=== PATIENT | female | born 1990 | race Caucasian/White ===

== ENCOUNTER 2025-04-19 20:23 | Emergency (ER) | payer BC, SELFPAY ==
[2025-04-19 20:25] VITALS: BP 124/78
--- NOTE | 2025-04-19 21:47 | ED.GENMED ---
History of Present Illness
General
Chief Complaint: Abdominal Symptoms
Source: patient
Exam Limitations: none
Time Seen by Provider: 04/19/25 21:34
History of Present Illness
History of Present Illness:
34-year-old female hearing-impaired patient presents with headache that started gradually yesterday got worse today with associated vomiting. About 15 months ago, she had a meningioma removed at [facility]. She deals with chronic
headaches. She has medications she uses for headaches. This was not going away. No fever. No vision change. No arm numbness or weakness. No injury. She denies any diarrhea. No other complaints at this time
Phy Exam
Physical Exam
Physical Exam:
General: Well-appearing female no acute respiratory distress HEENT: Normocephalic atraumaticpupils equal round reactive to light
Heart: Regular rate and rhythm no murmurs lungs: Clear no wheeze
Neurologic exam: Alert and oriented no facial asymmetry conversing appropriately no meningeal signs
Course
Orders/Labs/Results
Orders:
Orders
04/19/25 21:46
0.9% Sodium Chloride 1000 ml [Nss] 1,000 ml IV BOLUS
Diphenhydramine [Benadryl] 25 mg IV NOW STA
Prochlorperazine [Compazine] 10 mg IV NOW STA
Test Result ONCE
04/19/25 22:32
Complete Blood Count/With Diff Urgent
Comprehensive Metabolic Panel Urgent
HCG, Serum Qualitative Screen Urgent
Abnormal Lab Results
04/19/25
22:32
Absolute Neuts (auto) 6.6 H 10^3/uL
(1.4-6.5)
Neutrophils % 77.2 H %
(42.2-75.2)
Lymphocytes % 14.5 L %
(20.5-51.1)
Chloride 109 H mmol/L
(98-107)
04/19/25 22:32
04/19/25 22:32
Vital Signs
Initial and Last Documented VS:
Initial Vital Signs
Temp Pulse Resp BP Pulse Ox
98.6 F 89 15 124/78 99
04/19/25 20:25 04/19/25 20:25 04/19/25 20:25 04/19/25 20:25 04/19/25 20:25
Last Documented Vital Signs
Temp Pulse Resp BP Pulse Ox
98.6 F 89 15 96/67 97
04/19/25 20:25 04/19/25 20:25 04/19/25 20:25 04/20/25 00:00 04/20/25 00:00
MDM/Problems Addressed
Differential Diagnosis Includes:
Headache gradual in onset with associated nausea vomiting. Question migraine, electrolyte abnormality or dehydration. Patient does not describe a sudden onset severe headache. No fever to suggest infectious source.
Will check labs. Fluids Compazine and Benadryl ordered
*Critical Care Note
Total Time (30-74mins, 75-104mins- exclusive of procedures): Not Applicable
Update Note
Update Note:
Patient is feeling better now resting. No further vomiting. Suspect underlying migraine. Zofran prescribed for nausea at home. Stable for discharge
ED Attending Note
-
Portions of this chart may have been created with voice recognition software.� Occasional wrong word or��sound alike� substitutions may have occurred due to the inherent limitations of voice recognition software.
Discharge Plan
Departure
Patient Disposition: Home (Routine Discharge)
Date of Disposition: 04/20/25
Time of Disposition: 00:30
Patient with high blood pressure during this ER visit?: No
Discharge Problem:
Migraine
Instructions: Migraine in adults
Prescriptions:
New
ondansetron 4 mg tablet,disintegrating
4 mg PO Q8H PRN (Reason: nausea and vomiting) Qty: 10 0RF
Referrals:
Shruti Reyes CRNP [Family Provider] -
Activity Restrictions/Additional Instructions:
Rest. Drink plenty of fluids. Use Zofran if needed for nausea. Continue headache medication. Return if worse otherwise
Interventions
Interventions:
*Risk Screen - Suicide Last Done: 04/19/25 20:25
*General Assessment Last Done: 04/19/25 20:25
*Neglect/Abuse Screening Last Done: 04/19/25 20:25
*ED- Fall Risk Assessment Last Done: 04/19/25 23:00
*ED COVID-19 Vaccine History Last Done: 04/19/25 23:00
RR-Akqull-Uqmucdermm Assessment Last Done: 04/19/25 23:00
Discharge Date and Time
Print Language: [id number]
[2025-04-19] MEDS: COMPAZINE 10 MG IV (22:34)
[2025-04-19] MEDS: NSS 1000 IV (22:34)
[2025-04-19] MEDS: BENADRYL 25 MG IV (22:34)
[2025-04-19 22:40] VITALS: BP 111/73
[2025-04-19 22:42] LABS: % Basophils 0.7 % (0-2); % Eosinophils 0.4 % (0-6); % Immature Granulocytes 0.2 % (0-0.5); % Lymphocytes 14.5 % (20.5-51.1); % Neutrophils 77.2 % (42.2-75.2); Absolute Basophils 0.1 10^3/uL (0-0.2); Absolute Lymphocytes 1.2 10^3/uL (1.2-3.4); Absolute Monocytes 0.6 10^3/uL (0.1-0.6); Absolute Neutrophils 6.6 10^3/uL (1.4-6.5); Hematocrit 44.5 % (37.0-47.0); Hemoglobin 15.6 g/dL (12.0-16.0); Mean Corp Hgb Conc. 35.1 g/dL (33.0-37.0); Mean Corpuscular Hgb 29.6 pg (27.0-31.0); Mean Corpuscular Volume 84.4 fL (81.0-99.0); Mean Platelet Volume 9.5 fL (7.4-10.4); Nucleated Red Blood Cells % 0 %; Platelet Count 226 10^3/uL (130-400); Red Blood Cell Count 5.27 10^6/uL (4.20-5.40); Red Cell Dist. Width 12.4 % (11.5-14.5); White Blood Cell Count 8.6 10^3/uL (4.8-10.8)
[2025-04-19 22:52] LABS: HCG, Serum Qualitative Screen Negative
[2025-04-19 22:55] LABS: ALT (SGPT) 29 U/L (0-35); AST (SGOT) 30 U/L (14-36); Albumin 4.6 g/dl (3.5-5.0); Alkaline Phosphatase 84 U/L (38-126); Blood Urea Nitrogen 9 mg/dl (7-17); Calcium 9.9 mg/dl (8.4-10.2); Carbon Dioxide 22 mmol/L (22-30); Chloride 109 mmol/L (98-107); Glucose 94 mg/dl (70-99); Potassium 3.9 mmol/L (3.5-5.1); Sodium 141 mmol/L (135-145); Total Protein 7.5 g/dl (6.3-8.2); eGFR > 60.00
[2025-04-19 23:00] VITALS: BP 105/68
[2025-04-19 23:30] VITALS: BP 98/64
[2025-04-20] VITALS: BP 96/67
[2025-04-20 00:30] VITALS: BP 99/61
[2025-04-20] MEDS: ZOFRAN 4 MG IV (01:17)
== END 2025-04-20 01:25 | disposition home or self-care (01) ==
LOC: EMR 20:23
PROVIDERS: Physician Assistant; EMERGENCY PHYSICIAN Emergency Medicine; FAMILY PHYSICIAN Nurse Practitioner Family
DX: G43.909 Migraine, unspecified, not intractable, without status migrainosus (principal)
CPT/HCPCS: 99284; 96374; 96375 ×2; 96361; 80053; 84703; 85025